=== PATIENT | male | born 1970 | race African-American/Black ===

== ENCOUNTER 2018-12-04 12:23 | Emergency (ER) | payer OTHER ==
[~2018-12-04] VITALS: Ht 188 cm; Wt 77.1 kg
[2018-12-04 12:40] VITALS: BP 123/73
== END 2018-12-04 15:11 | disposition home or self-care (01) ==
LOC: ER 12:23
DX: S09.93XA Unspecified injury of face, initial encounter (principal); Y04.2XXA Assault by strike against or bumped into by another person, initial encounter; Y93.89 Activity, other specified; Y92.89 Other specified places as the place of occurrence of the external cause; Y99.8 Other external cause status